=== PATIENT | female | born 1995 | race African-American/Black ===

== ENCOUNTER 2020-05-31 13:48 | Emergency (ER) | payer OTHER ==
[~2020-05-31] VITALS: Ht 162.6 cm; Wt 82.0 kg
[2020-05-31 14:53] LABS: HEMATOCRIT. 38.8 % (36.0-48.0); HEMOGLOBIN. 13.4 g/dL (12.0-16.0); MEAN CORPUSCULAR HEMOGLOBIN 31.9 pg (28.0-32.0); MEAN CORPUSCULAR VOLUME 92.2 fL (81.0-99.0); MEAN PLATELET VOLUME 8.7 fl (7.4-10.4); PLATELET 307 x1000/uL (130-400); RED BLOOD CELL COUNT 4.21 mill/uL (4.2-5.4)
[2020-05-31 15:04] LABS: CHLORIDE 112 mEq/L (98-107)
[2020-05-31 15:16] LABS: B-HCG QUANTITATIVE < 1 mIU/mL (<3)
[2020-05-31 15:33] LABS: PLATELET ESTIMATE NORMAL
[2020-05-31 16:44] VITALS: BP 126/74
[2020-05-31 16:50] LABS: CLARITY URINE CLEAR (CLEAR); COLOR URINE YELLOW (YELLOW); KETONES URINE NEGATIVE (NEGATIVE); LEUKOCYTE ESTERASE URINE 1+ (NEGATIVE); NITRITE URINE NEGATIVE (NEGATIVE); OCCULT BLOOD URINE 3+ (NEGATIVE); PROTEIN URINE NEGATIVE (NEGATIVE); SPECIFIC GRAVITY URINE 1.004 (1.005-1.030); UROBILINOGEN URINE 0.2 E.U./dL (0.2-1.0)
== END 2020-05-31 16:47 | disposition home or self-care (01) ==
LOC: ER 13:58
DX: O03.9 Complete or unspecified spontaneous abortion without complication (principal); I49.9 Cardiac arrhythmia, unspecified
CPT/HCPCS: 36415; 76801; 80053; 81003; 84702; 85025; 86900; 93005; 99285